=== PATIENT | male | born 1990 | race Asian ===

== ENCOUNTER 2018-11-12 12:43 | Emergency (ER) | payer OTHER ==
[2018-11-12 12:49] VITALS: BP 137/93
--- NOTE | 2018-11-12 12:52 | UC ---
Throat Pain/Nasal Hermes HPI - HPI Summary HPI Summary: 28 yo male presents with sore throat for 4 days. He tells me that on 11/09 he developed a sore throat, tonsil enlargement, and a fever. He took a day off and rested and felt better. On 11/11 and today his symptoms have returned. He took tylenol OTC and feels a little better. Has not taken his temperature. He is eating, drinking, and tolerating po well. Denies sinus symptoms, cough, rash, n/ v. - History of Current Complaint Chief Complaint: UCGeneralIllness Stated Complaint: THROAT PAIN Time Seen by Provider: 11/12/18 12:51 Hx Obtained From: Patient Onset/Duration: Gradual Onset Severity: Moderate Pain Intensity: 7 Pain Scale Used: 0-10 Numeric - Allergies/Home Medications Allergies/Adverse Reactions: Allergies Allergy/AdvReac Type Severity Reaction Status Date / Time No Known Allergies Allergy Verified 11/12/18 12:49 PMH/Surg Hx/FS Hx/Imm Hx - Additional Past Medical History Additional PMH: None - Surgical History Surgical History: None - Family History Known Family History: Positive: Non-Contributory - Social History Occupation: Student Lives: With Family Alcohol Use: None Substance Use Type: None Smoking Status (MU): Never Smoked Tobacco Review of Systems All Other Systems Reviewed And Are Negative: No Constitutional: Positive: Fever - resolved Skin: Positive: Negative Eyes: Positive: Negative ENT: Positive: Sore Throat Respiratory: Positive: Negative Cardiovascular: Positive: Negative Gastrointestinal: Positive: Negative Neurovascular: Positive: Negative Neurological: Positive: Negative Psychological: Positive: Negative Physical Exam - Summary Physical Exam Summary: GENERAL: NAD. WDWN. No pain distress. SKIN: No rashes, sores, lesions, or open wounds. HEENT: Head: AT/NC Eyes: Conjunctiva clear without inflammation or discharge. Ears: Hearing grossly normal. TMs intact, no bulging, erythema, or edema. Nose: Nasal mucosa pink and moist. NTTP maxillary and frontal sinus. Throat: Posterior oropharynx mild erythema and 3+ tonsillar enlargement. No exudates. Uvula midline. No hoarse voice or muffled voice. NECK: Supple. Mild TTP tonsillar LAD CHEST: CTAB. No r/r/w. No accessory muscle use. Breathing comfortably and in no distress. CV: RRR. Without m/r/g. Pulses intact. Cap refill <2seconds NEURO: Alert. PSYCH: Age appropriate behavior. Triage Information Reviewed: Yes Vital Signs: Initial Vital Signs Temp 99 F 11/12/18 12:47 Pulse 76 11/12/18 12:47 Resp 16 11/12/18 12:47 BP 137/93 11/12/18 12:47 Pulse Ox 100 11/12/18 12:47 Laboratory Tests 11/12/18 12:55 Group A Strep Rapid Negative Vital Signs Reviewed: Yes Throat Pain/Nasal Course/Dx - Course Course Of Treatment: POC strep negative. Suspect Tonsillitis - Differential Dx/Diagnosis Provider Diagnosis: Tonsillitis Discharge ED - Sign-Out/Discharge Documenting (check all that apply): Patient Departure All imaging exams completed and their final reports reviewed: No Studies - Discharge Plan Condition: Stable Disposition: HOME Prescriptions: Amoxicillin PO (*) [Amoxicillin 875 MG (*)] 875 mg PO BID #14 tab Patient Education Materials: Tonsillitis (ED) Referrals: No Primary Care Phys,NOPCP [Primary Care Provider] - Additional Instructions: If you develop a fever, shortness of breath, chest pain, new or worsening symptoms - please call your PCP or go to the ED immediately. Your blood pressure was high at todays visit. Please see your primary provider within 4 weeks for recheck and re-evaluation. - Billing Disposition and Condition Condition: STABLE Disposition: Home - Attestation Statements Provider Attestation: I was available for consult. This patient was seen by the LUIS ENRIQUE. The patient was not presented to, seen by, or examined by me. -Sanjay
== END 2018-11-12 13:05 | disposition home or self-care (01) ==
LOC: UCEAST 12:43
DX: J03.90 Acute tonsillitis, unspecified (principal)
CPT/HCPCS: 87651; 99202; G0463

== ENCOUNTER → 2019-01-24 12:47 | Day surgery (SDC) | payer OTHER ==
[~2019-01-24 12:47] MED LIST: Bacitracin OINTMENT* 0.5% 0.5 oz TUBE ONE; Buffered Lidocaine 1% SYRIN* 1 ML/SYRINGE INTRADERM ONE; Bupivacaine 0.25% EPI 200,000* 30 ML SDV ONE; Chloroprocaine 2%* 20 ML VIAL ONE; Dexamethasone IV* 4 MG/ML 1 ML (4 MG) ONE; Famotidine IV* 10 MG/ML 2 ML (20 mg) IV ONE; Famotidine IV* 10 MG/ML 2 ML (20 mg) ONE; Gelfoam Sponge SIZE 100* SPONGE ONE; Lactated Ringers 1000 ML Bag* 1,000 ML IV SCH; Lidocaine 2% PF * 5 ML VIAL ONE; Methylene Blue 0.5 %* 50 MG/10 ML AMP IV ONE; Midazolam* 1 MG/ML 2 ML VIAL (2 MG) ONE; Midazolam* 1 MG/ML 5 ML VIAL (5 MG) ONE; Naloxone* 0.4 MG/ML 1 ML VIAL IV PRN; Ondansetron INJ* 2 MG/ML VIAL IV PRN; Ondansetron INJ* 2 MG/ML VIAL ONE; Propofol* 10 MG/ML 20 ML BTL ONE; ceFAZolin 2 GM in NS PREMIX(*) 2 GM/100 ML BAG IVPB ONE; fentaNYL* 50 MCG/ML 2 ML VIAL (100 MCG VIAL) IV PRN; fentaNYL* 50 MCG/ML 2 ML VIAL (100 MCG VIAL) ONE
--- NOTE | 2019-01-24 15:36 | OP ---
Operative Report - Detailed - Operation Details Date of Operation: 01/24/19 Date of : 88 Surgeon(s): Mechelle GALVAN Surgical Elastic Knitter Hand Frame(s): REMEDIOS López Anesthesiologist(s): Dulce GALVAN Anesthesia: Spinal Pre-Op Diagnosis: anal fistula Post-Op Diagnosis: anal fistula Planned Operative Procedure(s): Exam under anesthesia, placement of Seton IV Fluids: LR 1150cc Drains: Seton placed Complications: none
--- NOTE | 2019-01-24 15:45 | OP ---
Operative Report - Blank - Operative Report Date of Operation: 01/24/19 Note: Operative Note Preoperative Dx: Anal Fistula Postoperative Dx: Anal Fistula Procedure: Exam under anesthesia, placement of seton Anesthesia: Spinal Surgeon: Mechelle GALVAN Technology Specialist: Rene WHITTAKER EBL: scant Specimen: none fluids: 1150 LR Drains: Seton Findings:As Above
[2019-01-24 18:31] VITALS: BP 125/84
--- NOTE | 2019-01-24 21:13 | OP ---
CC: [facility] * DATE OF OPERATION: 01/24/19 - [facility] DATE OF : 88 SURGEON: Kirill Min MD SOFTWARE DEVELOPMENT ANALYST: CRYS Cooper ANESTHESIOLOGIST: Dr. Cardona. ANESTHESIA: Spinal. PRE-OP DIAGNOSIS: [id number]. POST-OP DIAGNOSIS: [id number]. OPERATIVE PROCEDURE: Exam under anesthesia and evaluation of fistula and seton placement. ESTIMATED BLOOD LOSS: Minimal. FLUIDS: Minimal crystalloid fluid given. SPECIMEN: None. DESCRIPTION OF PROCEDURE: The patient was identified in the preoperative area. Consent was signed. We discussed the case again. He had questions and we answered. He was then taken to the operating room and spinal anesthesia was delivered. Please see separate report for details. He was then placed prone on the table and his buttocks were taped apart and the perineum was prepped with Betadine. A time-out was performed. Digital rectal exam was performed. He was significantly dilated already and it was not difficult. I then addressed the fistula tract that was at the anterior , approximately 7 o'clock, 3 cm from the anal verge. A probe was then inserted at approximately 3 or 4 cm, but I could not see the tract. Next, a methylene blue was injected through a 22-gauge Angiocath through the tract and we noted this along the dentate line. We then were able to track this with the probe and found our fistula. Next, after injection of lidocaine with epinephrine, we incised the perianal skin as well as the buttock skin and deepened this down to the fistula tract distally. I extended my incision until we could see a sphincter muscle and it appeared that we had a good portion of sphincter muscle. At this point, I stopped any additional dissection rather choosing to utilize a seton. A small vessel loop was then utilized. This was placed in the tract and doubling it up and tying it to itself. We then injected additional lidocaine with epinephrine and closed the most distal portion of our incision without touching the tract with 2 interrupted 3-0 Biosyn sutures. Antibiotic ointment was applied followed by a gauze. The patient was woken up and transferred to PACU in stable condition. [id number]/[facility] #: [id number] [facility]ITAL[facility]
== END | disposition home or self-care (01) ==
LOC: OR 12:47
PROVIDERS: ATTEND Surgery
DX: K60.3 Anal fistula (principal)
CPT/HCPCS: A9270-GY; J0690; J1100; J2250; J2400; J2405; J2704; J3010